=== PATIENT | female | born 2000 | race Caucasian/White ===

== ENCOUNTER 2022-01-11 18:51 | Emergency (ER) | payer BC, SELFPAY ==
[2022-01-11 18:52] VITALS: BP 140/95; PULSE 59; RESP 15; TEMP 36.7; O2SAT 99; BMI 23.0
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
[2022-01-11] MEDS: Lidocaine 1% (20 ml mdv) 20 ML Vial INFILT (19:32)
[2022-01-11] MEDS: Lidocaine/Epi/Tetracaine 50 ML 1 APPLIC TOPICAL (19:32)
[2022-01-11] MEDS: Diphth,Pertuss(Acell),Tet Vac 0.5 ML Vial IM (22:13)
[2022-01-11 22:15] VITALS: BP 130/74; PULSE 74; RESP 15; O2SAT 99
== END 2022-01-11 22:16 | disposition home or self-care (01) ==
PROVIDERS: Emergency Provider Emergency Medicine; Visit Provider Emergency Medicine
DX: S01.111A Laceration without foreign body of right eyelid and periocular area, initial encounter (principal); Z23 Encounter for immunization; V49.88XA Car occupant (driver) (passenger) injured in other specified transport accidents, initial encounter
CPT/HCPCS: 12011; 90471; 90715; 99284